=== PATIENT | female | born 1970 | race American Indian/Alaskan Native ===

== ENCOUNTER 2016-10-20 13:34 | Outpatient (CLI) | payer MEDICAID ==
--- NOTE | 2016-10-20 14:39 | XRay Report ---
ROUTINE CHEST, TWO VIEWS: History: Cough. PA and lateral views demonstrate the heart and mediastinal contour to be of normal size and shape. The lungs are clear and fully expanded and the soft tissues and bony structures are normal. IMPRESSION: Normal study.
== END 2016-10-20 13:35 | disposition home or self-care (01) ==
LOC: XRAY 13:34
PROVIDERS: ATTEND Internal Medicine Hematology & Oncology
DX: R05 Cough (principal)
CPT/HCPCS: 71020